=== PATIENT | female | born 1990 | race Caucasian/White ===

== ENCOUNTER 2018-01-08 16:40 | Inpatient (IN) | payer OTHER ==
[~2018-01-08] VITALS: Ht 165.1 cm; Wt 87.3 kg
[2018-01-28] VITALS (36 sets, daily range): BP systolic 111–141; BP diastolic 53–89; PULSE 60–91; TEMP 97.6–98.3
[2018-01-28] MEDS ORDERED: PRENATAL1 TA7 PO (06:28)
[2018-01-28] MEDS ORDERED: ZANTAC 150MG T150 MG PO (07:27)
[2018-01-28 08:05] LABS: BASO % 0.3 % (0.0-2.0); EOS # 0.1 (0.0-0.7); EOS % 0.8 % (0-4.0); GRAN # 8.6 (1.4-6.5); GRAN % 73.6 % (42.2-75.2); HEMOGLOBIN 12.8 g/dl (12.5-16.0); LYMPH # 2.1 (1.2-3.4); LYMPH % 18.1 % (20.0-51.0); MEAN CELL VOLUME 86 fl (80.0-100.0); MEAN CORPUSCULAR HEMOGLOBIN 29 pg (27.0-31.0); MEAN CORPUSCULAR HGB CONC 34 g/dl (33.0-37.0); MEAN PLATELET VOLUME 10.1 fl (7.4-10.4); MONO # 0.7 (0.1-0.6); MONO % 6.4 % (1.7-9.3); PLATELET COUNT 252 K/mm3 (130-400); RED BLOOD COUNT 4.44 M/mm3 (4.10-5.30); REDCELL DISTRIBUTION WIDTH-CV 13.8 % (11.5-14.5)
[2018-01-29 01:15] VITALS: BP 105/64; PULSE 82; TEMP 98.2
[2018-01-29] MEDS ORDERED: MOTRIN 800800 MG/TAB PO (07:17)
[2018-01-29] MEDS ORDERED: PERCOCET 325 MG1 TA2 PO (07:17)
[2018-01-29 07:50] VITALS: BP 107/56; PULSE 75; TEMP 98.1
[2018-01-29 16:00] VITALS: BP 112/45; PULSE 79; TEMP 97.8
[2018-01-29 19:50] VITALS: BP 110/58; PULSE 103; TEMP 98.3
[2018-01-30 08:10] VITALS: BP 113/66; PULSE 82; TEMP 98.2
== END 2018-01-30 12:00 | disposition home or self-care (01) | DRG 775 ==
LOC: LDR 01-28 07:05 → OB 01-28 16:15 → EDSTATUS 02-04 09:02 → LDRO 02-04 16:39
PROVIDERS: Obstetrics & Gynecology
PROC: 10E0XZZ Delivery of Products of Conception, External Approach (ICD-10-PCS; principal; 2018-01-28)
PROC: 0KQM0ZZ Repair Perineum Muscle, Open Approach (ICD-10-PCS; 2018-01-28)
DX: O75.89 Other specified complications of labor and delivery (principal); O70.1 Second degree perineal laceration during delivery; Z3A.39 39 weeks gestation of pregnancy; Z37.0 Single live birth
CPT/HCPCS: J2590; J7120